=== PATIENT | female | born 1985 | race Caucasian/White ===

== ENCOUNTER 2022-02-22 09:02 | Outpatient (CLI) | payer BC ==
[2022-02-22] MEDS ORDERED: Iopamidol 370 76% 100 ML VIAL ONE (15:57)
[2022-02-22] MEDS ORDERED: GASTROGRAFIN 30 ML BOT ONE (15:57)
== END 2022-02-22 09:03 | disposition home or self-care (01) ==
LOC: CT 09:02
PROVIDERS: ATTEND Nurse Practitioner Family
DX: R10.31 Right lower quadrant pain (principal)
CPT/HCPCS: 74177; Q9963; Q9967